=== PATIENT | female | born 1995 | race Caucasian/White ===

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

== ENCOUNTER 2019-08-10 18:04 | Emergency (ER) | payer OTHER ==
[2019-08-10 18:26] VITALS: BP 128/72
[2019-08-10] MEDS ORDERED: Tetan/Diph/Pertus SYR(Tdap)* 0.5 ML SYR(BOOSTRIX) use SYR contains LATEX IM ONE (18:38)
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
== END 2019-08-10 19:22 | disposition home or self-care (01) ==
LOC: UCCORT 18:04
DX: O9A.219 Injury, poisoning and certain other consequences of external causes complicating pregnancy, unspecified trimester (principal); S93.402A Sprain of unspecified ligament of left ankle, initial encounter; W05.1XXA Fall from non-moving nonmotorized scooter, initial encounter; Y92.9 Unspecified place or not applicable
CPT/HCPCS: 84702; 90471; 90715; 99213; G0463